=== PATIENT | female | born 1965 | race Asian ===

== ENCOUNTER 2024-08-06 19:01 | Emergency (ER) | payer MEDICAID, SELFPAY ==
--- NOTE | 2024-08-06 19:05 | EKG_ITS ---
[facility] Test Date: 2024-08-06 Pat Name: DIANA UPTON Department: Room: - Gender: Female [employer]: : [id number] Requested By: David Pantoja Order Number: [id number] Reading MD: David Pantoja Measurements Intervals [place] Rate: 76 P: 57 MS: 153 QRS: 5 QRSD: 90 T: 34 QT: 391 QTc: 441 Interpretive Statements SINUS RHYTHM No previous ECG available for comparison /store/S0/[id number]/ecg/[id number].pdf
[2024-08-06 20:24] VITALS: BP 157/75; PULSE 73; RESP 18; TEMP 36.8; O2SAT 100
[2024-08-06 21:16] LABS: Collection Type, Urine Clean Catch
[2024-08-06 21:29] LABS: Bilirubin,Urine Negative (Negative); Blood,Urine Negative (Negative); Clarity,Urine Clear (Clear/Hazy); Color,Urine Yellow (Lt Yel-Yel); Culture Indicated,Urine Not Indicated; Glucose, Urine Negative (Negative); Ketones,Urine Negative (Negative); Leukocyte Esterase,Urine Positive (Negative); Nitrite,Urine Negative (Negative); Protein,Urine Trace (Neg - Trace); RBC,Urine 2 /hpf (0-3); Specific Gravity,Urine 1.015 (1.001-1.035); Squamous Epithelial Cell,Urine 1 /hpf (0-5); Urobilinogen,Urine Negative mg/dL (0.0-1.0); WBC,Urine 9 /hpf (0-5)
[2024-08-06 21:45] LABS: Basophils % (Auto) 0 % (0-2.5); Eosinophils % (Auto) 0 % (0-10); Hematocrit 37.2 % (36.0-46.0); Hemoglobin 12.2 g/dL (12.0-16.0); Immature Granulocytes % (Auto) 1 % (0-0); Immature Granulocytes Auto 0.11 Thou/mm3 (0.00-0.00); Lymphocytes # (Auto) 0.8 Thou/mm3 (1.0-4.8); Lymphocytes % (Auto) 4 % (10-50); Mean Corpuscular HGB Conc 32.8 g/dl (31.0-37.0); Mean Corpuscular Hemoglobin 24.8 pg (25.0-35.0); Mean Corpuscular Volume 76 fL (80-100); Monocytes # (Auto) 0.7 Thou/mm3 (0.0-0.8); Monocytes % (Auto) 4 % (0-12); Neutrophils # (Auto) 17.4 Thou/mm3 (1.8-7.7); Neutrophils % (Auto) 91 % (37-80); Nucleated Red Blood Cell % 0 /100 WBC (0); Platelet Count 259 Thou/mm3 (140-440); RDW Standard Deviation 43.1 fL (36.4-46.3); Red Blood Count 4.91 Miln/mm3 (4.00-5.20)
--- NOTE | 2024-08-06 22:07 | XR_ITS ---
Examination: CT chest with intravenous contrast CT abdomen with intravenous contrast CT pelvis with intravenous contrast 2-D coronal and sagittal reconstructions Time of exam: August 11, 2024, 10:54 PM Indications: Onset dizziness nausea vomiting abdominal pain today CTDI: vol (mGy) : 5.53 DLP: (mGycm): 343 Technique: Multiple axial images of the chest, abdomen and pelvis with intravenous contrast, 3.0 mm slice thickness. Images obtained post intravenous injection Isovue 370 60 cc. 2-D sagittal and coronal reconstructions. Low dose protocols were performed. One or more of the following dose reduction techniques were used; automated exposure control, adjustment of the mA and/or KV according to patient size, use of iterative reconstruction technique. Findings: 11 mm calcified right thyroid nodule No thoracic aortic aneurysm dilatation No pulmonary artery filling defects Soft nodular opacities in the right upper lobe No focal liver or splenic lesions 3 mm gallstone No pancreatic mass Abdominal aortic calcification no aneurysmal dilatation No bowel obstruction Normal appendix No diverticulitis Moderate osteopenia Urinary bladder wall thickening up to 4 mm Mild osteopenia Impression: 11 mm calcified right thyroid nodule Early pneumonia right upper lobe. Cholelithiasis Normal appendix No bowel obstruction diverticulitis or free air. Mild cystitis pattern
[2024-08-06 22:14] LABS: Alanine Aminotransferase 42 U/L (10-49); Albumin, Serum 4.3 gm/dL (3.4-4.8); Albumin/Globulin Ratio 1.4 (1.2-2.2); Alkaline Phosphatase 70 U/L (46-116); Anion Gap 7 (7-16); Aspartate Amino Transferase 37 U/L (0-34); BUN/Creatinine Ratio 18 Ratio (12-20); Bilirubin,Total 0.5 mg/dL (0.3-1.2); Blood Urea Nitrogen 14 mg/dL (9-23); Calcium 9.1 mg/dL (8.3-10.6); Calcium (Corrected) 9.1 mg/dL (8.5-10.1); Carbon Dioxide 26.8 mMol/L (20.0-31.0); Chloride 108 mMol/L (98-107); Creatinine (Component) 0.8 mg/dL (0.6-1.3); Glucose 183 mg/dL (74-106); Lipase 47 U/L (12-53); Osmolality,Calculated 288 (275-295); Potassium 3.7 mMol/L (3.4-5.1); Sodium 142 mMol/L (136-145); Total Protein 7.3 gm/dL (5.7-8.2); eGFR > 60 See Note
--- NOTE | 2024-08-06 22:33 | PD.EDNV ---
Nausea/Vomit./Diarrhea-RME/HPI General Chief complaint: Dizziness Stated complaint: DIZZINEES,N/V Time Seen by Provider: 08/06/24 20:45 Arrival date/time: 08/06/24 19:01 59F with history of CVA, HTN, and HLD presents to ED with for several hours of dizziness, N/V, ab cramping, and non-bloody diarrhea after she ate something. Patient does not remember what it felt like during her CVA but states this looks different. states patient is acting at her baseline and has not been slurring her speech. Limitations: no limitations Related Data Home Medications ?Medication ?Instructions ?Recorded ?Confirmed meclizine 25 mg tablet 25 mg PO TID PRN Dizziness 02/12/19 02/12/19 omeprazole 20 mg capsule,delayed 20 mg PO QDAY 02/12/19 02/12/19 release omeprazole magnesium 20 mg 20 mg PO QDAY 02/12/19 02/12/19 tablet,delayed release (Prilosec OTC) simvastatin 20 mg tablet 20 mg PO QPM 02/12/19 02/12/19 Previous Rx's ?Medication ?Instructions ?Recorded cefuroxime axetil 500 mg tablet 500 mg PO BID 7 days #14 tabs 08/07/24 ondansetron 4 mg disintegrating 4 mg PO Q8H PRN nausea and 08/07/24 tablet vomiting #10 tabs Allergies Allergy/AdvReac Type Severity Reaction Status Date / Time No Known Allergies Allergy Verified 08/06/24 19:22 Review of Systems Review of Systems Systems Reviewed: All systems reviewed, normal except as documented Constitutional Constitutional: Reports system reviewed and no additional complaints, except as documented, Denies fever(s) and Denies headache(s) ENT Ears, Nose, Mouth, and Throat: Reports as per HPI, Denies disequilibrium, Denies headache(s) and Reports vertigo Cardiovascular Cardiovascular: Reports system reviewed and no additional complaints, except as documented, Denies chest pain and Denies dyspnea Respiratory Respiratory: Reports system reviewed and no additional complaints, except as documented, Denies cough and Denies dyspnea Gastrointestinal Gastrointestinal: Reports system reviewed and no additional complaints, except as documented, Reports as per HPI, Reports abdominal pain, Reports diarrhea, Reports nausea and Reports vomiting Neurologic Neurologic: Reports system reviewed and no additional complaints, except as documented, Denies confusion, Denies disequilibrium, Denies headache(s) and Reports vertigo Psychiatric Psychiatric: Denies confusion Past Medical History Past Medical History NEUROLOGIC: Positive Neurological Disorders (Vertigo) CARDIAC: Positive Hypercholesterolemia and Hypertension; Negative Cardiac Disorders or Congestive Heart Failure RESPIRATORY: Negative Chronic Obstructive Pulmonary Disease (COPD) or Asthma GASTROINTESTINAL: Positive Gastroesophageal Reflux Disease; Negative Gastrointestinal Disorders or Hepatitis GENITOURINARY: Negative Genitourinary Disorders or Renal Disease REPRODUCTIVE: Negative Pelvic Inflammatory Disease MUSCULOSKELETAL: Negative Musculoskeletal Disorders ENDOCRINE: Negative Endocrine Disorders, Diabetes Mellitus Type 1 or Diabetes Mellitus Type 2 HEMATOLOGIC: Negative Blood Disorders or Sickle Cell Disease OTHER HISTORY: Negative Autoimmune Disease, Blood Transfusions, Blood Transfusion Reaction, Anesthesia Reactions, Organ Transplant, Chemotherapy, Radiation Therapy, Hyperbaric Therapy, MRSA, VRSA, Vancomycin-Resistant Enterococci, Human Immunodeficiency Virus (HIV), Chicken Pox, Measles, Mumps, Rubella (Welsh Measles), Pertussis, Clostridium Difficile or Cancer Family History FAMILY HISTORY: Positive Family Cancer; Negative Family Psychiatric Problems, Family Respiratory Disorders, Family Cardiac Disorders, Family Gastrointestinal Problems, Family Surgery or Family Anesthesia Reaction Surgical History SURGICAL: Positive Tubal Ligation; Negative Cardiac Surgery, Endocrine Surgery, Ear Surgery, Abdominal Surgery, Nephrectomy, Joint Replacement, Neurologic Surgery, Vasectomy or Organ Transplant Social History SMOKING STATUS: Never smoker SUBSTANCE USE: does not use ED Exam General Limitations: Present no limitations General appearance: Present alert and in no apparent distress Head Head exam: Present atraumatic Eye Eye exam: Present normal appearance, PERRL and EOMI ENT ENT exam: Present normal exam, normal oropharynx and mucous membranes moist Neck Neck exam: Present normal inspection, full ROM and trachea midline Chest Chest inspection: Present normal inspection and symmetric chest wall rise Respiratory Respiratory exam: Present normal lung sounds bilaterally Cardiovascular Cardiovascular exam: Present regular rate, normal rhythm and normal heart sounds Abdominal Exam Abdominal exam: Present soft and normal bowel sounds Extremities Exam Extremities exam: Present normal inspection and full ROM Back Exam Back exam: Present normal inspection and full ROM Neurological Exam Neurological exam: Present alert, oriented X3 and CN II-XII intact Psychiatric Psychiatric exam: Present normal affect and normal mood Skin Skin exam: Present warm, dry, intact and normal color Course Quality Measures none Orders Category Date Time Status Blood glucose [Bedside Blood Glucose] NOW Care 08/06/24 19:[address] Screening NOW Care 08/06/24 22:07 Active EKG (ED ONLY) *Do not use* NOW Care 08/06/24 19:05 Completed Insert IV NOW Care 08/06/24 20:[address] chest abdomen pelvis w Stat Exams 08/06/24 22:07 Completed EKG (ED Only) Stat Exams 08/06/24 19:05 Draft CBC Stat Lab 08/06/24 21:13 Completed CMP [Comprehensive Metabolic Panel] Stat Lab 08/06/24 21:13 Completed Lipase Stat Lab 08/06/24 21:13 Completed Procalcitonin Stat Lab 08/06/24 21:13 Completed Urinalysis, C/S if Indicated Stat Lab 08/06/24 21:02 Completed Meclizine HCl [Antivert] Med 08/07/24 01:14 Once 25 mg PO X1 ONE Ondansetron Inj [Zofran Inj] Med 08/06/24 20:46 Discontinued 4 mg IV X1 ONE Sodium Chloride 0.9% 1000 ml [Ns] 1,000 ml Med 08/06/24 20:46 Discontinued IV 500 mls/hr cefTRIAXone/D5w 1gm IV premix [Rocephin/D5w 1gm IV Med 08/07/24 00:15 Discontinued premix] 1 gm in 50 ml IV X1 Vital Signs Vital signs: Vital Signs Temperature 98.2 F 08/06/24 20:24 Pulse Rate 73 08/06/24 20:24 Respiratory Rate 18 08/06/24 20:24 Blood Pressure 157/75 H 08/06/24 20:24 Pulse Oximetry (%) 100 08/06/24 20:24 Oxygen Delivery Method Room Air 08/06/24 20:24 O2 at 100% on RA and WNLs Nausea/Vomiting/Diarrhea MDM Narrative MDM Narrative:: 59F with history of CVA, HTN, and HLD presents to ED with for several hours of dizziness, N/V, ab cramping, and non-bloody diarrhea after she ate something. Patient does not remember what it felt like during her CVA but states this looks different. states patient is acting at her baseline and has not been slurring her speech. Physical exam reveals normal pupil response and EOM. CN II-XII grossly intact. No focal ab tenderness. Normal WOB. Patient is afebrile, calm, and alert. Leukocytosis of 19k likely reactive. CT reveals mild PNA and UTI. CMP, lipase, and procal unremarkable. UA mild UTI. EKG is NSR. More likely food poisoning since symptoms started right after she ate. PO challenge passed. Patient data External records reviewed:: [facility] previous records Clinical information provided by:: patient Social determinants that could affect healthcare access:: none Patient has the following chronic illnesses:: CVA, HTN, and HLD How is presenting disease/condition affected by chronic disease/condition?: exacerbated by Evaluation data The following diagnostics were reviewed and interpreted by me:: lab results, radiology exam(s) and EKG tracing(s) Lab and/or radiology exams considered but not ordered:: ordered Interpretation Summary: above Medications / Prescriptions Medications / Prescriptions considered but not ordered:: ordered Medication administrations:: Medication Administration History Meclizine HCl (Meclizine Hcl 25 Mg Tablet) 25 mg PO X1 ONE Stop: 08/07/24 01:15 Discontinued Medications Sodium Chloride (Ns) 1,000 mls @ 500 mls/hr IV .Q2H ONE Stop: 08/06/24 22:45 Last Infusion: 08/07/24 01:02 Dose: Infused Documented By: Admin: 08/06/24 23:11 Dose: 500 mls/hr Documented By: OA Ceftriaxone Sodium/Dextrose (Rocephin/D5w 1gm Iv Premix) 1 gm in 50 mls @ 100 mls/hr IV X1 ONE Stop: 08/07/24 00:44 Last Admin: 08/07/24 01:10 Dose: 100 mls/hr Documented By: FIDENCIOL Ondansetron HCl (Ondansetron Inj 2 Mg/Ml Inj 2 Ml) 4 mg IV X1 ONE; Protocol Stop: 08/06/24 20:47 Last Admin: 08/06/24 23:11 Dose: 4 mg Documented By: WO above Consultations Consultation(s) initiated? (list below): No Diagnosis Nausea Differential Diagnosis: traveler's diarrhea, food poisoning, gastroenteritis, clostridium difficile infection, drug-induced nausea and vomiting, dehydration and other (CAP, UTI) Most likely diagnosis given after review of the tests above:: CAP, UTI, and food poisoning Admission Indicated Admission indicated?: not indicated Admission Request Was there a request for admission?: No Disposition Plan Disposition Plan: Discharge Discharge Attestation Discharge Attestation: The patient and all family members were given an opportunity to ask questions and understood the discharge instructions. Discharge instructions specifically effects, indications for sooner follow up or return to the emergency department, and the expected course of current diagnosis. Patient condition: Stable Discharge Plan Plan Patient Disposition: HOME (Self Care) Disposition Comment: Stable Prescriptions/Referrals Prescriptions/Med Rec: New ondansetron 4 mg tablet,disintegrating 4 mg PO Q8H PRN (Reason: nausea and vomiting) Qty: 10 0RF cefuroxime axetil 500 mg tablet 500 mg PO BID 7 Days Qty: 14 0RF No Action meclizine 25 mg Tablet 25 mg PO TID PRN (Reason: Dizziness) simvastatin 20 mg Tablet 20 mg PO QPM omeprazole 20 mg Capsule,Delayed Release(Dr/Ec) 20 mg PO QDAY Prilosec OTC 20 mg Tablet,Delayed Release (Dr/Ec) 20 mg PO QDAY Referrals: No Primary/Family,Physician [Primary Care Provider] - In 1 week Problem List Clinical Impression: Food poisoning, CAP (community acquired pneumonia), UTI (urinary tract infection) Patient/Caregiver Discharge Instructions Education Materials: ED Food Poisoning (Adult), ED Pneumonia (Adult), ED CYSTITIS Female Adult Additional Instructions: Please follow-up with PCP within 24-48 hours and return immediately if symptoms worsen. Keep hydrated. Advance diet as tolerated. Print Language: Tav[place] Stand Alone Forms: Patient Portal Info Letter OSMAN/FILIBERTO Supervising Physician OSMAN/FILIBERTO Supervising Physician: Dr. Chung
[2024-08-06] MEDS: SODIUM CHLORIDE 0.9% 1000 ML 1,000 ML 500 ML IV (23:11)
[2024-08-06] MEDS: ONDANSETRON INJ 2 MG/ML INJ 2 ML 4 MG IV (23:11)
[2024-08-07 00:49] LABS: Procalcitonin 0.17 ng/ml (0.0-0.49)
[2024-08-07] MEDS: cefTRIAXone/D5w 1gm IV premix 1 GM/50 ML BAG IV (01:10)
[2024-08-07 01:39] VITALS: RESP 18
== END 2024-08-07 01:40 | disposition home or self-care (01) ==
PROVIDERS: Physician Assistant; Emergency Provider Emergency Medicine
DX: A05.9 Bacterial foodborne intoxication, unspecified (principal); J18.9 Pneumonia, unspecified organism; N39.0 Urinary tract infection, site not specified; I10 Essential (primary) hypertension; E78.00 Pure hypercholesterolemia, unspecified
CPT/HCPCS: 36415; 71260; 74177; 80053; 81001; 83690; 84145; 85025; 93005; 96365; 96375; 99285; A4649; J0696; J2405; J7030; Q9967